=== PATIENT | female | born 2000 | race Hispanic/Latino ===

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

== ENCOUNTER 2024-01-21 10:22 | Emergency (ER) | payer MEDICAID, OTHER ==
[~2024-01-21] VITALS: Ht 160 cm; Wt 90.7 kg
[~2024-01-21 10:22] MED LIST: CETI10TA57 PO
[2024-01-21 10:34] VITALS: BP 120/72; PULSE 72; RESP 16; O2SAT 97
[2024-01-21] MEDS: KETOROLAC 30MG VIAL (30MG/ML) IM ONE (11:15)
[2024-01-21] MEDS ORDERED: IBUP-2071 PO (13:26)
== END 2024-01-21 13:39 | disposition home or self-care (01) ==
LOC: EDH 10:22
DX: S93.402A Sprain of unspecified ligament of left ankle, initial encounter (principal); X50.1XXA Overexertion from prolonged static or awkward postures, initial encounter; Y93.89 Activity, other specified; Y92.89 Other specified places as the place of occurrence of the external cause; Y99.8 Other external cause status
CPT/HCPCS: 99284; 73610; 73590; 96372; J1885